=== PATIENT | female | born 1990 | race Caucasian/White ===

== ENCOUNTER → 2017-11-21 | Outpatient (CLI) | payer BC | END | disposition home or self-care (01) | LOC: LABWHC1 12:19 | PROVIDERS: ATTEND Obstetrics & Gynecology | DX: Z34.90 Encounter for supervision of normal pregnancy, unspecified, unspecified trimester (principal); Z3A.00 Weeks of gestation of pregnancy not specified | CPT/HCPCS: 36415; 84702; 86850; 86900; 86901 ==

== ENCOUNTER → 2023-03-14 | Outpatient (CLI) | payer BC ==
--- NOTE | 2023-03-14 14:07 | XR ---
EXAMINATION TYPE: XR foot limited LT DATE OF EXAM: 03/14/2023 COMPARISON: NONE HISTORY: Pain TECHNIQUE: Three views are submitted. FINDINGS: There is a fracture through the base of the fifth metatarsal. There is soft tissue edema. Mild hypert rophic arthropathy first MTP. Small plantar calcaneal spur. IMPRESSION: 1. 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
== END | disposition home or self-care (01) ==
LOC: RADXRMAIN 13:40
PROVIDERS: ATTEND Family Medicine
DX: M24.875 Other specific joint derangements left foot, not elsewhere classified (principal)

== ENCOUNTER 2023-04-11 11:36 | Day surgery (SDC) | payer BC ==
[~2023-04-11 11:36] MED LIST: DEXAMETHASONE SOD PHOSPHATE 4 MG/ML 1 ML VIAL IV ONE; HYDROmorphone 0.5 MG/0.5 ML SYRINGE IVP PRN; LACTATED RINGERS 1,000 ML IV SCH; MIDAZOLAM 2 MG/2 ML VIAL IV PRN; ONDANSETRON 4 MG/2 ML VIAL IVP ONE; SCOPOLAMINE 1 MG/72 HR PATCH TRANSDERM ONE
[2023-04-11 12:11] LABS: Glucose,Whole Blood 91 mg/dL (70-110)
[2023-04-11] MEDS ORDERED: fentaNYL (PF) 50 MCG/ML 2 ML AMP IVP ONE (12:37)
--- NOTE | 2023-04-11 12:58 | P.ANPRN ---
Procedure Note - Anesthesia - Nerve Block Performed Left Popliteal Single Date of Procedure: 04/11/23 Procedure Start Time: 12:35 Procedure Stop Time: 12:50 Location of Patient: PreOp Indication: Acute Post-Operative Pain, Requested by Surgeon Specifically requested for management of pain by DrKerry: Diallo Aden Sedation Type: Sedate with meaningful contact maintained Preparation: Sterile Prep Position: Right Lateral Catheter: None Needle Types: Pajunk Needle Gauge: 21 Ultrasound used to visualize needle placement: Yes Ultrasound used to observe medication spread: Yes Injectate: 0.5% Ropivacaine (see comment for volume) (20 mL/Decadron 4 mg) Blood Aspirated: No Pain Paresthesia on Injection Noted: No Resistance on Injection: Normal Image Stored and Saved: Yes Events: Uneventful and Well Tolerated
--- NOTE | 2023-04-11 12:59 | P.ANPRN ---
Procedure Note - Anesthesia - Nerve Block Performed Left Adductor Canal Single Date of Procedure: 04/11/23 Procedure Start Time: 12:35 Procedure Stop Time: 12:50 Location of Patient: PreOp Indication: Acute Post-Operative Pain, Requested by Surgeon Specifically requested for management of pain by DrKerry: Diallo Aden Sedation Type: Sedate with meaningful contact maintained Preparation: Sterile Prep Position: Supine Catheter: None Needle Types: Pajunk Needle Gauge: 21 Ultrasound used to visualize needle placement: Yes Ultrasound used to observe medication spread: Yes Injectate: 0.5% Ropivacaine (see comment for volume) (15 mL/Decadron 4 mg) Blood Aspirated: No Pain Paresthesia on Injection Noted: No Resistance on Injection: Normal
[2023-04-11] MEDS ORDERED: PROPOFOL 10 MG/ML 20 ML VIAL IV ONE (13:33)
[2023-04-11] MEDS ORDERED: SODIUM CHLORIDE 0.9% (PF) 10 ML VIAL ONE (13:33)
[2023-04-11] MEDS ORDERED: MIDAZOLAM 2 MG/2 ML VIAL ONE (13:33)
[2023-04-11] MEDS ORDERED: LIDOCAINE 1% INJ 10MG/ML (20 ML MDV) ONE (13:33)
[2023-04-11] MEDS ORDERED: DEXAMETHASONE SOD PHOSPHATE 4 MG/ML 1 ML VIAL ONE (13:33)
[2023-04-11] MEDS ORDERED: fentaNYL (PF) 50 MCG/ML 2 ML AMP ONE (13:33)
[2023-04-11] MEDS ORDERED: ROPIVACAINE 5 MG/ML 30 ML VIAL ONE (13:33)
[2023-04-11] MEDS ORDERED: ceFAZolin 1,000 MG in SODIUM CHLORIDE 0.9% 1,000 ML IRRIGATION ONE (13:46)
[2023-04-11 14:28] VITALS: TEMP 97.4
[2023-04-11 16:01] VITALS: BP 99/67; PULSE 69; RESP 18
--- NOTE | 2023-04-14 19:13 | OP ---
OPERATIVE REPORT DATE OF SERVICE : 04/11/2023 PREOPERATIVE DIAGNOSIS: Displaced fifth metatarsal fracture left foot. POSTOPERATIVE DIAGNOSIS: Displaced fifth metatarsal fracture left foot. PROCEDURE PERFORMED: Open reduction with internal fixation, left 5th metatarsal fracture. ANESTHESIA: General with preoperative nerve block. HEMOSTASIS: Left calf tourniquet at 250 mmHg. ESTIMATED BLOOD LOSS: Minimal. MATERIALS: 1 Arthrex 4.5 mm Martell fracture screw. INJECTABLES: None. SPECIMENS: None. COMPLICATIONS: None. DESCRIPTION OF PROCEDURE: Prior to the patient being brought to the operating room, Anesthesia administered, nerve block to the left lower extremity. The patient was brought into the operating room, placed on table in supine position. Time-out was taken to confirm correct patient identifiers, correct laterality of surgery, and correct procedure. Once all staff in the room were in agreement with time-out, the patient was induced and placed under general anesthesia. A well-padded tourniquet was placed in the left calf and a bump underneath the left hip to internally rotate the left leg. The left foot was then prepped and draped in the usual manner. The left foot was exsanguinated and the tourniquet inflated to 250 mmHg. Under direct fluoroscopic visualization, incision plane was made proximal to the fifth metatarsal base. A small incision was made and then bluntly dissected down to the subcutaneous tissue, then it was dissected distally to the base of the fifth metatarsal. A guidewire for the Martell fracture screw system was then placed at the base of the fifth metatarsal, so that the trajectory was aimed for the medullary canal. The wire was advanced partially to the base and then fluoroscopy was used to make sure that the trajectory was correct on AP and lateral views. Once that was correct, the wire was advanced past the fracture into the medullary canal to the secondary curvature. Final fluoroscopic imaging showed correct placement of the wire. The drilling was then performed over the wire and then the tap was inserted and tapped to the depth of the wire. The tap and wire were removed. The wound was irrigated with antibiotic saline and then the Martell fracture screw was inserted into the drill hole and advanced until the threads were distal to the fracture of the head engaging the cortex of the proximal fifth metatarsal base. There was good screw purchase and compression of the fracture. Final fluoroscopic imaging showed proper placement of screw on AP and lateral views. The wound was again irrigated with antibiotic saline and the skin closed with 3-0 nylon. Nonadherent gauze and a dry sterile dressing were applied to the left foot. The tourniquet was released. Capillary refill returned to all digits on the left foot. The patient tolerated the above procedure and anesthesia well, went to Recovery with vital signs stable. MMODL / IJN: [id number] /
== END 2023-04-11 15:55 | disposition home or self-care (01) ==
LOC: OR 11:36
PROVIDERS: ATTEND Podiatrist
DX: S92.352A Displaced fracture of fifth metatarsal bone, left foot, initial encounter for closed fracture (principal); G89.18 Other acute postprocedural pain; J45.909 Unspecified asthma, uncomplicated; K21.9 Gastro-esophageal reflux disease without esophagitis; F17.290 Nicotine dependence, other tobacco product, uncomplicated; F10.90 Alcohol use, unspecified, uncomplicated; Z79.899 Other long term (current) drug therapy; Z88.0 Allergy status to penicillin; Z88.5 Allergy status to narcotic agent; Z82.49 Family history of ischemic heart disease and other diseases of the circulatory system; Z83.3 Family history of diabetes mellitus; X58.XXXA Exposure to other specified factors, initial encounter
CPT/HCPCS: 64447; 81025; 64445; 28485; C1713; J2250; J1100; J0690 ×2; J2405; J2001; J3010; J2795; J2704

== ENCOUNTER 2023-06-13 17:13 | Emergency (ER) | payer BC ==
--- NOTE | 2023-06-13 17:27 | ED ---
Female Urogenital HPI - General Source: patient, family, RN notes reviewed Mode of arrival: ambulatory Limitations: no limitations - History of Present Illness Last Menstrual Period: 04/15/23 <Payton Walter - Last Filed: 06/13/23 17:25> <Antwon Baker - Last Filed: 06/13/23 21:51> - General Stated complaint: 6wks pre possible miscarrige Time Seen by Provider: 06/13/23 17:25 - History of Present Illness Initial comments: Patient is a 32-year-old female presented ER with chief complaint of vaginal bleeding. Patient states she is about 6 weeks and follows up with Dr. Bahena. She reports for the past 3 days she's been having mild spotting and saw her [facility] STE[facility]ER yesterday. Patient states her bleeding increased today and she is now passing clots. (Payton Walter) 32-year-old female presenting to the ED with a chief complaint of vaginal bleeding. Patient states approximately 6 weeks . States for the past few days she's had some spotting and saw her [facility] STE[facility]ER yesterday who performed an ultrasound which reportedly showed IUP. However, states today when she went to the bathroom she had an abrupt increase of vaginal bleeding and is now passing clots. No urinary symptoms. No recent trauma. No chest pain shortness of breath. No other complaints. (Antwon Baker) - Related Data Home Medications Medication Instructions Recorded Confirmed Acetaminophen [Tylenol Extra 1 tab PO DIRECTED PRN 04/08/23 04/08/23 Strength] Betamethasone Dipropionate 1 applic TOPICAL BID 04/08/23 04/08/23 [Betamethasone Dipropionate 0.05%] Ibuprofen 800 mg PO Q8H PRN 04/08/23 04/11/23 Nystatin 100,000Unit/gm Cream 1 applic TOPICAL BID PRN 04/08/23 04/08/23 [Mycostatin Cream] Otc Nexium 1 tab PO DAILY 04/08/23 04/08/23 Phentermine HCl 37.5 mg PO DAILY 04/08/23 04/11/23 Topiramate 50 mg PO DAILY 04/08/23 04/08/23 Unk Multi Vitamin 1 tab PO DAILY 04/08/23 04/08/23 Previous Rx's Medication Instructions Recorded HYDROcodone/APAP 5-325MG [[place] 1 tab PO Q6HR PRN #14 tab 04/11/23 5-325] Allergies Allergy/AdvReac Type Severity Reaction Status Date / Time cefaclor [From [facility]] Allergy Unknown Verified 06/13/23 17:25 Childhood Penicillins Allergy Unknown Verified 06/13/23 17:25 Childhood Review of Systems ROS Other: All systems not noted in ROS Statement are negative. <Payton Walter - Last Filed: 06/13/23 17:25> ROS Other: All systems not noted in ROS Statement are negative. <Antwon Baekr - Last Filed: 06/13/23 21:51> ROS Statement: Those systems with pertinent positive or pertinent negative responses have been documented in the HPI. Past Medical History Past Medical History: Asthma, GERD/Reflux, Skin Disorder Additional Past Medical History / Comment(s): recent weight loss. with rash at times in skin folds. rash at beltline. childhood asthma. fx left foot unknown cause History of Any Multi-Drug Resistant Organisms: None Reported Past Surgical History: No Surgical Hx Reported, Joint Replacement Additional Past Surgical History / Comment(s): bilateral CTR. jaw fx -wired shut Past Anesthesia/Blood Transfusion Reactions: Family History of Problems w/ Anesthesia Additional Past Anesthesia/Blood Transfusion Reaction / Comment(s): mom has BP problems Past Psychological History: Anxiety, Depression Smoking Status: Current every day smoker - Past Family History Father Family Medical History: Diabetes Mellitus, Hypertension Additional Family Medical History / Comment(s): Mother Family Medical History: Myocardial Infarction ([place]) <Payton Walter - Last Filed: 06/13/23 17:25> General Exam Limitations: no limitations <Payton Walter - Last Filed: 06/13/23 17:25> General appearance: alert, in no apparent distress Neck exam: Present: normal inspection Respiratory exam: Present: normal lung sounds bilaterally Cardiovascular Exam: Present: regular rate, normal rhythm GI/Abdominal exam: Present: soft External exam: Present: other (Exam chaperoned by Vilma COOK. Vaginal vault showed large clots which does obscure the cervix how her cervix does appear dilated.) Neurological exam: Present: alert, oriented X3 Skin exam: Present: warm, dry <Antwon Baker - Last Filed: 06/13/23 21:51> - General Exam Comments Initial Comments: Visual Physical Exam Vital signs reviewed General: Anxious and crying, no acute distress. Head: Normocephalic, atraumatic Eyes: PERRLA, EOMI ENT: Airway patent Chest: Nonlabored breathing Skin: No visual rash, normal skin tone Neuro: Alert and oriented 3 Musculoskeletal: No gross abnormalities (Payton Walter) Course Vital Signs 06/13/23 17:20 Temperature 98.1 F Pulse Rate 52 L Respiratory 22 Rate O2 Sat by Pulse 95 Oximetry Medical Decision Making <Payton Walter - Last Filed: 06/13/23 17:25> - Lab Data Result diagrams: 06/13/23 18:47 06/13/23 18:47 <Antwon Baker - Last Filed: 06/13/23 21:51> - Medical Decision Making I performed the quick note portion of the exam. Electronically signed by Payton Walter PA-C (Payton Walter) Was pt. sent in by a medical professional or institution ([facility], AC/DC REWINDER, urgent care, hospital, or snf...) When possible be specific @ -No Did you speak to anyone other than the patient for history (EMS, parent, family, police, friend...)? What history was obtained from this source @ -No Did you review nursing and triage notes (agree or disagree)? Why? @ -I reviewed and agree with nursing and triage notes Were old charts reviewed (outside hosp., previous admission, EMS record, old EKG, old radiological studies, urgent care reports/EKG's, snf records)? Report findings @ -No old charts were reviewed Differential Diagnosis (chest pain, altered mental status, abdominal pain women, abdominal pain men, vaginal bleeding, weakness, fever, dyspnea, syncope, headache, dizziness, GI bleed, back pain, seizure, CVA, palpatations, mental health, musculoskeletal)? @ -Differential Vaginal Bleeding: Spontaneous , threatened , molar , ectopic , bloody show, incompetent cervix, abruptioplacenta, placenta previa, uterine rupture, dysfunctional uterine bleeding, hemorrhage, uterine fibroids, this is not meant to be an all-inclusive list. EKG interpreted by me (3pts min.). @ -None X-rays interpreted by me (1pt min.). @ -None done CT interpreted by me (1pt min.). @ -None done U/S interpreted by me (1pt. min.). @ -None done What testing was considered but not performed or refused? (CT, X-rays, U/S, labs)? Why? @ -None What meds were considered but not given or refused? Why? @ -None Did you discuss the management of the patient with other professionals (professionals i.e. , PA, AC/DC REWINDER, lab, RT, psych nurse, social media marketer, academic vice president, teacher, psychological operations officer, high risk case manager)? Give summary @ -No Was smoking cessation discussed for >3mins.? @ -No Was critical care preformed (if so, how long)? @ -No Were there social determinants of health that impacted care today? How? (Homelessness, low income, unemployed, alcoholism, drug addiction, transportation, low edu. Level, literacy, decrease access to med. care, fdc, rehab)? @ -No Was there de-escalation of care discussed even if they declined (Discuss DNR or withdrawal of care, Hospice)? DNR status @ -No What co-morbidities impacted this encounter? (DM, HTN, Smoking, COPD, CAD, Cancer, CVA, ARF, Chemo, Hep., AIDS, mental health diagnosis, sleep apnea, morbid obesity)? @ -None Was patient admitted / discharged? Hospital course, mention meds given and route, prescriptions, significant lab abnormalities, going to OR and other pertinent info. @ -Discharge 32-year-old female presenting to the ED with 3 days of spotting with abrupt increase in bleeding with passing of clots and some abdominal cramping today. Laboratory studies reviewed. Labs show white count of 16.3. Chemistry panel unremarkable. UA shows no significant evidence for infection. Transvaginal ultrasound showed a gestational sac estimated at 6 weeks 2 days however no intrauterine pole or yolk sac. Sac is low-lying. No cardiac activity as well. At this time vital signs stable, afebrile. Patient discharged home in stable condition to follow up with her OBGYN. Discussed strict return precuations with patient and family who verbalized agreement. Undiagnosed new problem with uncertain prognosis? @ -No Drug Therapy requiring intensive monitoring for toxicity (Heparin, Nitro, Insulin, Cardizem)? @ -No Were any procedures done? @ -No Diagnosis/symptom? @ -Spontaneous Acute, or Chronic, or Acute on Chronic? @ -Acute Uncomplicated (without systemic symptoms) or Complicated (systemic symptoms)? @ -Complicated Side effects of treatment? @ -No Exacerbation, Progression, or Severe Exacerbation? @ -No Poses a threat to life or bodily function? How? (Chest pain, [place], [place], pneumonia, PE, COPD, DKA, ARF, appy, cholecystitis, CVA, Diverticulitis, Homicidal, Suicidal, threat to staff... and all critical care pts) @ -No (Antwon Baker) - Lab Data Lab Results 06/13/23 06/13/23 06/13/23 Range/Units 18:47 18:47 18:47 WBC 16.3 H (3.8-10.6) k/uL RBC 4.30 (3.80-5.40) m/uL Hgb 12.8 (11.4-16.0) gm/dL Hct 38.4 (34.0-46.0) % MCV 89.3 (80.0-100.0) fL MCH 29.7 (25.0-35.0) pg MCHC 33.3 (31.0-37.0) g/dL RDW 12.9 (11.5-15.5) % Plt Count 388 (150-450) k/uL MPV 7.2 Sodium 138 (137-145) mmol/L Potassium 4.3 (3.5-5.1) mmol/L Chloride 102 (98-107) mmol/L Carbon Dioxide 24 (22-30) mmol/L Anion Gap 12 mmol/L BUN 14 (7-17) mg/dL Creatinine 0.86 (0.52-1.04) mg/dL Est GFR (CKD-EPI)AfAm >90 (>60 ml/min/1.73 sqM) Est GFR (CKD-EPI)NonAf >90 (>60 ml/min/1.73 sqM) Glucose 92 (74-99) mg/dL Calcium 9.6 (8.4-10.2) mg/dL Total Bilirubin 0.5 (0.2-1.3) mg/dL AST 33 (14-36) U/L ALT 40 H (4-34) U/L Alkaline Phosphatase 75 (38-126) U/L Total Protein 7.5 (6.3-8.2) g/dL Albumin 4.5 (3.5-5.0) g/dL HCG, Quant 3340.6 mIU/mL Urine Color Urine Appearance (Clear) Urine pH (5.0-8.0) Ur Specific [place] (1.001-1.035) Urine Protein (Negative) Urine Glucose (UA) (Negative) Urine Ketones (Negative) Urine Blood (Negative) Urine Nitrite (Negative) Urine Bilirubin (Negative) Urine Urobilinogen (<2.0) mg/dL Ur Leukocyte Esterase (Negative) Urine RBC (0-5) /hpf Urine WBC (0-5) /hpf Ur Squamous Epith Cells (0-4) /hpf Urine Mucus (None) /hpf Blood Type O Positive Blood Type Recheck O Pos Bld Type Recheck Status [facility] ONLY 06/13/23 Range/Units 20:12 WBC (3.8-10.6) k/uL RBC (3.80-5.40) m/uL Hgb (11.4-16.0) gm/dL Hct (34.0-46.0) % MCV (80.0-100.0) fL MCH (25.0-35.0) pg MCHC (31.0-37.0) g/dL RDW (11.5-15.5) % Plt Count (150-450) k/uL MPV Sodium (137-145) mmol/L Potassium (3.5-5.1) mmol/L Chloride (98-107) mmol/L Carbon Dioxide (22-30) mmol/L Anion Gap mmol/L BUN (7-17) mg/dL Creatinine (0.52-1.04) mg/dL Est GFR (CKD-EPI)AfAm (>60 ml/min/1.73 sqM) Est GFR (CKD-EPI)NonAf (>60 ml/min/1.73 sqM) Glucose (74-99) mg/dL Calcium (8.4-10.2) mg/dL Total Bilirubin (0.2-1.3) mg/dL AST (14-36) U/L ALT (4-34) U/L Alkaline Phosphatase (38-126) U/L Total Protein (6.3-8.2) g/dL Albumin (3.5-5.0) g/dL HCG, Quant mIU/mL Urine Color Yellow Urine Appearance Clear (Clear) Urine pH 7.0 (5.0-8.0) Ur Specific [place] 1.019 (1.001-1.035) Urine Protein Trace H (Negative) Urine Glucose (UA) Negative (Negative) Urine Ketones Negative (Negative) Urine Blood Large H (Negative) Urine Nitrite Negative (Negative) Urine Bilirubin Negative (Negative) Urine Urobilinogen <2.0 (<2.0) mg/dL Ur Leukocyte Esterase Negative (Negative) Urine RBC >182 H (0-5) /hpf Urine WBC 14 H (0-5) /hpf Ur Squamous Epith Cells <1 (0-4) /hpf Urine Mucus Rare H (None) /hpf Blood Type Blood Type Recheck Bld Type Recheck Status Disposition <Payton Walter - Last Filed: 06/13/23 17:25> Is patient prescribed a controlled substance at d/c from ED?: No Time of Disposition: 21:51 <Antwon Baker - Last Filed: 06/13/23 21:51> Clinical Impression: Spontaneous Disposition: HOME SELF-CARE Condition: Good Instructions (If sedation given, give patient instructions): Miscarriage (ED) Additional Instructions: Please return to the Emergency Department if symptoms worsen or any other concerns. Please follow up with your [facility] STE[facility]ER. Referrals: Mathew Yun DO [Primary Care Provider] - 1-2 days
[2023-06-13 17:45] VITALS: TEMP 98.1
[2023-06-13 18:58] LABS: HCT 38.4 % (34.0-46.0); HGB 12.8 gm/dL (11.4-16.0); MCH 29.7 pg (25.0-35.0); MCHC 33.3 g/dL (31.0-37.0); MCV 89.3 fL (80.0-100.0); Mean Platelet Volume 7.2; Platelet Count 388 k/uL (150-450); RDW 12.9 % (11.5-15.5); WBC 16.3 k/uL (3.8-10.6)
[2023-06-13 19:08] LABS: ALT 40 U/L (4-34); AST 33 U/L (14-36); African American GFR (CKD) >90 (>60 ml/min/1.73 sqM); Albumin 4.5 g/dL (3.5-5.0); Alkaline Phosphatase 75 U/L (38-126); Anion Gap 12 mmol/L; Blood Urea Nitrogen 14 mg/dL (7-17); Calcium 9.6 mg/dL (8.4-10.2); Carbon Dioxide 24 mmol/L (22-30); Chloride 102 mmol/L (98-107); Glucose 92 mg/dL (74-99); Non-African American GFR(CKD) >90 (>60 ml/min/1.73 sqM); Potassium 4.3 mmol/L (3.5-5.1); Sodium 138 mmol/L (137-145); Total Bilirubin 0.5 mg/dL (0.2-1.3); Total Protein 7.5 g/dL (6.3-8.2)
[2023-06-13 19:25] LABS: HCG,Quantitative Serum 3340.6 mIU/mL
[2023-06-13 20:57] LABS: Appearance,Urine Clear (Clear); Bilirubin,Urine Negative (Negative); Blood,Urine Large (Negative); Color,Urine Yellow; Glucose,Urine (UA) Negative (Negative); Ketones,Urine Negative (Negative); Leukocyte Esterase,Urine Negative (Negative); Mucus,Urine Rare /hpf; Nitrite,Urine Negative (Negative); Protein,Urine Trace (Negative); RBC,Urine >182 /hpf (0-5); Specific Gravity,Urine 1.019 (1.001-1.035); Squamous Epithelial Cell,Urine <1 /hpf (0-4); Urobilinogen,Urine <2.0 mg/dL (<2.0); WBC,Urine 14 /hpf (0-5)
--- NOTE | 2023-06-13 21:05 | US ---
EXAMINATION TYPE: Transabdominal DATE OF EXAM: 06/13/2023 8:52 PM COMPARISON: NONE CLINICAL INDICATION: Female, 32 years old with history of bleeding; Bleeding x 1 day EXAM PERFORMED: Transvaginal (TV) and Transabdominal (TA) EXAM MEASUREMENTS: GESTATIONAL AGE / DATING Physician Established: (8 weeks/3 days) EDC: 01/20/2024 Dates by LMP: (8 weeks/3 days) EDC: 01/20/2024 Dates by First Scan: This is 1st scan here Dates by Current Scan for: No pole seen at this time MATERNAL ANATOMY Uterus: 10.2 x 3.4 x 4.0cm, thickened endometrium Right Ovary: 3.3 x 2.8 x 2.8cm Left Ovary: 3.0 x 2.9 x 2.7cm Post CDS / Adnexa: wnl Presence of free fluid: no Presence of corpus luteal cyst: right ovary - 1.8 x 1.8 x 1.5cm Presence of subchorionic bleed: no GESTATION / SURVEY MSD: 1.5cm (6 weeks/2 days) No pole or yolk sac seen at this time Gestational sac appears to be in lower uterine segment and cervix Date of LMP: 04/15/2023 Beta HcG (if available): Not available at time of exam IMPRESSION: 1. Single intrauterine gestational sac estimated at 6 weeks 2 days based on the mean sac diameter. Th e sac is low-lying within the uterine segment cervical canal. This may be an impending spontaneous ab ortion. 2. An intrauterine pole or yolk sac is not identified at this time. No cardiac activity is pres ent. Findings can be related to blighted oval.
[2023-06-13 22:10] VITALS: BP 112/71; PULSE 80; RESP 16
== END 2023-06-13 22:01 | disposition home or self-care (01) ==
LOC: EC 17:13
DX: O03.9 Complete or unspecified spontaneous abortion without complication (principal); J45.909 Unspecified asthma, uncomplicated; O99.52 Diseases of the respiratory system complicating childbirth; O99.334 Smoking (tobacco) complicating childbirth; F17.200 Nicotine dependence, unspecified, uncomplicated; Z88.0 Allergy status to penicillin; Z88.8 Allergy status to other drugs, medicaments and biological substances; Z3A.00 Weeks of gestation of pregnancy not specified
CPT/HCPCS: 36415; 76801; 76817; 80053; 81001; 84702; 85027; 86900; 86901; 99284

== ENCOUNTER 2024-05-03 16:20 | Outpatient (CLI) | payer BC | END 2024-05-03 17:44 | disposition home or self-care (01) | LOC: FBPOP 16:20 | PROVIDERS: ATTEND Obstetrics & Gynecology | DX: O99.331 Smoking (tobacco) complicating pregnancy, first trimester (principal); O24.429 Gestational diabetes mellitus in childbirth, unspecified control; Z3A.01 Less than 8 weeks gestation of pregnancy; F17.210 Nicotine dependence, cigarettes, uncomplicated; Z88.1 Allergy status to other antibiotic agents; Z88.0 Allergy status to penicillin | CPT/HCPCS: 59025; 59200; 99213 ==

== ENCOUNTER 2024-05-04 06:00 | Inpatient (IN) | payer BC ==
[2024-05-04] MEDS: LACTATED RINGERS 1,000 ML IV SCH (06:20)
[2024-05-04 06:43] LABS: Glucose,Whole Blood 109 mg/dL (70-110)
[2024-05-04] MEDS ORDERED: OXYTOCIN 10 UNIT/ML 1 ML VIAL IM PRN (06:44)
[2024-05-04] MEDS ORDERED: LIDOCAINE 0.5% (PF) 5 MG/ML (50 ML SDV) SQ PRN (06:44)
[2024-05-04] MEDS ORDERED: miSOPROStoL 200 MCG TAB RECTAL PRN (06:44)
[2024-05-04] MEDS ORDERED: METHYLERGONOVINE 0.2 MG/ML 1 ML AMP IM PRN (06:44)
[2024-05-04] MEDS ORDERED: miSOPROStoL 200 MCG TAB PO PRN (06:44)
[2024-05-04] MEDS ORDERED: TERBUTALINE 1 MG/ML VIAL SQ PRN (06:44)
[2024-05-04] MEDS ORDERED: CARBOPROST TROMETHAMINE 250 MCG/ML 1 ML AMP IM PRN (06:44)
[2024-05-04] MEDS ORDERED: TRANEXAMIC 1,000 MG/100ML-NACL 1,000 MG in EMPTY BAG 1 BAG IV PRN (06:44)
[2024-05-04] MEDS: OXYTOCIN 30 UNITS/500 ML NS 30 UNIT in SALINE 1 500ML.BAG IV SCH (06:59)
[2024-05-04 07:13] LABS: Basophils # (A) 0.1 k/uL (0-0.2); Basophils % (A) 0 %; Eosinophils # (A) 0.6 k/uL (0-0.7); Eosinophils % (A) 3 %; HCT 36.9 % (34.0-46.0); Lymphocytes # (A) 2.8 k/uL (1.0-4.8); Lymphocytes % (A) 16 %; MCH 28.5 pg (25.0-35.0); MCHC 32.7 g/dL (31.0-37.0); MCV 87.2 fL (80.0-100.0); Mean Platelet Volume 7.9; Monocytes # (A) 0.8 k/uL (0-1.0); Monocytes % (A) 5 %; Neutrophils # (A) 12.3 k/uL (1.3-7.7); Neutrophils % (A) 73 %; Platelet Count 346 k/uL (150-450); RBC 4.23 m/uL (3.80-5.40); RDW 14.4 % (11.5-15.5); WBC 16.9 k/uL (3.8-10.6)
--- NOTE | 2024-05-04 07:50 | P.HPOB ---
History of Present Illness H&P Date: 05/04/24 Chief Complaint: induction of labor 33 year old presents at 39 weeks for induction of labor. She has GDM A2. Sugar this morning was 109. She is not beryl and had dilapan last night since she was closed. Today it is 1-2/50/-3. heart tones category 1. Review of Systems All systems: negative Constitutional: Denies chills, Denies fever Eyes: denies blurred vision, denies pain Ears, nose, mouth and throat: Denies headache, Denies sore throat Cardiovascular: Denies chest pain, Denies shortness of breath Respiratory: Denies cough Gastrointestinal: Denies abdominal pain, Denies diarrhea, Denies nausea, Denies vomiting Genitourinary: Denies dysuria, Denies hematuria Musculoskeletal: Denies myalgias Integumentary: Denies pruritus, Denies rash Neurological: Denies numbness, Denies weakness Psychiatric: Denies anxiety, Denies depression Endocrine: Denies fatigue, Denies weight change Past Medical History Past Medical History: Asthma, GERD/Reflux, Skin Disorder Additional Past Medical History / Comment(s): recent weight loss. with rash at times in skin folds. rash at beltline. childhood asthma. fx left foot unknown cause History of Any Multi-Drug Resistant Organisms: None Reported Past Surgical History: No Surgical Hx Reported, Joint Replacement Additional Past Surgical History / Comment(s): bilateral CTR. jaw fx -wired shut Past Anesthesia/Blood Transfusion Reactions: Family History of Problems w/ Anesthesia Additional Past Anesthesia/Blood Transfusion Reaction / Comment(s): mom has BP problems Past Psychological History: Anxiety, Depression Smoking Status: Current every day smoker Past Alcohol Use History: Occasional Additional Past Alcohol Use History / Comment(s): 1/2 ppd smoked. since teens Past Drug Use History: None Reported - Past Family History Father Family Medical History: Diabetes Mellitus, Hypertension Additional Family Medical History / Comment(s): Mother Family Medical History: Myocardial Infarction ([place]) Medications and Allergies Home Medications Medication Instructions Recorded Confirmed Type Acetaminophen [Tylenol Extra 1 tab PO DIRECTED PRN 04/08/23 04/08/23 History Strength] Otc Nexium 1 tab PO DAILY 04/08/23 04/08/23 History Phentermine HCl 37.5 mg PO DAILY 04/08/23 04/11/23 History Aspirin [[place] Aspirin EC] 81 mg PO 05/04/24 History Insulin Glargine,Hum.rec.anlog 29 units SQ DAILY 05/04/24 05/04/24 History [Lantus Solostar Pen] Vit No.179/Iron/Folic 1 each PO 05/04/24 History [ Tablet] Allergies Allergy/AdvReac Type Severity Reaction Status Date / Time cefaclor [From [facility]] Allergy Unknown Verified 06/13/23 17:25 Childhood Penicillins Allergy Unknown Verified 06/13/23 17:25 Childhood Exam Osteopathic Statement: *. No significant issues noted on an osteopathic structural exam other than those noted in the History and Physical/Consult. Vital Signs Temp Pulse Resp BP Pulse Ox 05/04/24 06:30 96.9 F L 107 H 16 135/95 100 Intake and Output 05/03/24 05/04/24 05/04/24 22:59 06:59 14:59 Other: Weight 136.985 kg Heart: Regular rate and rhythm Lungs: Clear to auscultation bilaterally Abdomen: Soft, nontender Extremities: Negative Homans sign Results Result Diagrams: 05/04/24 06:45 Abnormal Lab Results - Last 24 Hours (Table) 05/04/24 Range/Units 06:45 WBC 16.9 H (3.8-10.6) k/uL Neutrophils # 12.3 H (1.3-7.7) k/uL Assessment and Plan (1) Gestational diabetes mellitus, class A2 Current Visit: Yes Status: Acute Code(s): O24.419 - GESTATIONAL DIABETES MELLITUS IN , UNSP CONTROL SNOMED Code(s): 02503873 (2) 39 weeks gestation of Current Visit: Yes Status: Acute Code(s): Z3A.39 - 39 WEEKS GESTATION OF SNOMED Code(s): 27476780 Plan: 1. induction of labor with dilapan and then amniotomy and pitocin 2. anticipate normal vaginal delivery
[2024-05-04 08:08] LABS: Glucose,Whole Blood 98 mg/dL (70-110)
[2024-05-04 10:10] LABS: Glucose,Whole Blood 94 mg/dL (70-110)
[2024-05-04 12:07] LABS: Glucose,Whole Blood 95 mg/dL (70-110)
[2024-05-04 13:52] LABS: Glucose,Whole Blood 79 mg/dL (70-110)
[2024-05-04 16:07] LABS: Glucose,Whole Blood 77 mg/dL (70-110)
[2024-05-04 18:02] LABS: Glucose,Whole Blood 81 mg/dL (70-110)
[2024-05-04] MEDS: BUTORPHANOL 1 MG/ML 1 ML VIAL IV PRN (19:11)
[2024-05-04 20:04] LABS: Glucose,Whole Blood 80 mg/dL (70-110)
[2024-05-04 23:00] LABS: Glucose,Whole Blood 85 mg/dL (70-110)
[2024-05-05 01:59] LABS: Glucose,Whole Blood 80 mg/dL (70-110)
[2024-05-05 04:18] LABS: Glucose,Whole Blood 78 mg/dL (70-110)
[2024-05-05 06:15] LABS: Glucose,Whole Blood 99 mg/dL (70-110)
[2024-05-05] MEDS: CITRIC ACID-SODIUM CITRATE 15 ML CUP PO ONE ×2 (07:49→09:18)
[2024-05-05] MEDS ORDERED: MIDAZOLAM 2 MG/2 ML VIAL ONE (08:04)
[2024-05-05] MEDS ORDERED: OXYTOCIN 30 UNITS/500 ML NS BAG IV ONE (08:04)
[2024-05-05] MEDS ORDERED: ONDANSETRON 4 MG/2 ML VIAL ONE (08:04)
[2024-05-05] MEDS ORDERED: KETOROLAC 15 MG/ML 1 ML VIAL ONE (08:04)
[2024-05-05] MEDS ORDERED: MORPHINE SULFATE (PF) 0.3 MG/0.3 ML SYR ONE (08:04)
[2024-05-05] MEDS ORDERED: diphenhydrAMINE 50 MG CAP PO PRN (08:51)
[2024-05-05] MEDS ORDERED: diphenhydrAMINE 50 MG/ML 1 ML VIAL IVP PRN (08:51)
[2024-05-05] MEDS ORDERED: LANOLIN CREAM 1 GM TUBE TOPICAL PRN (08:51)
[2024-05-05] MEDS ORDERED: ZOLPIDEM 5 MG TAB PO PRN (08:51)
[2024-05-05] MEDS ORDERED: NALOXONE 0.4 MG/ML 1 ML VIAL IV PRN (08:51)
[2024-05-05] MEDS ORDERED: METOCLOPRAMIDE 5 MG/ML 2 ML VIAL IVP PRN (08:51)
[2024-05-05] MEDS ORDERED: SIMETHICONE 80 MG CHEWABLE PO PRN (08:51)
[2024-05-05] MEDS ORDERED: diphenhydrAMINE 25 MG CAP PO PRN (08:51)
[2024-05-05] MEDS ORDERED: OXYTOCIN 30 UNITS/500 ML NS 30 UNIT in SALINE 1 500ML.BAG IV SCH (09:00)
[2024-05-05] MEDS: ceFAZolin 3 GM in SODIUM CHLORIDE 0.9% 100 ML IVPB ONE (09:17)
[2024-05-05] MEDS: LACTATED RINGERS 1,000 ML IV ONE (09:19)
[2024-05-05] MEDS: LACTATED RINGERS 1,000 ML IV SCH (11:39)
[2024-05-05] MEDS: ACETAMINOPHEN TAB 500 MG TAB PO SCH (13:29)
[2024-05-05] MEDS: ONDANSETRON 4 MG/2 ML VIAL IVP PRN (15:06)
[2024-05-05] MEDS: KETOROLAC 15 MG/ML 1 ML VIAL IVP SCH (16:15)
[2024-05-05] MEDS: diphenhydrAMINE 50 MG/ML 1 ML VIAL IVP PRN (17:10)
[2024-05-05] MEDS: SENNOSIDES-DOCUSATE SODIUM 1 EACH TAB PO SCH (20:05)
[2024-05-05] MEDS: MEASLES-MUMPS-RUBELLA VACC/PF 12,500 UNIT/0.5 ML VIAL SQ ONE (23:55)
[2024-05-06 00:07] VITALS: RESP 16
[2024-05-06 05:25] LABS: Basophils # (A) 0.1 k/uL (0-0.2); Basophils % (A) 0 %; Eosinophils # (A) 0.6 k/uL (0-0.7); Eosinophils % (A) 3 %; Lymphocytes # (A) 2.9 k/uL (1.0-4.8); Lymphocytes % (A) 18 %; MCH 28.5 pg (25.0-35.0); MCHC 32.5 g/dL (31.0-37.0); MCV 87.7 fL (80.0-100.0); Mean Platelet Volume 7.9; Monocytes % (A) 6 %; Neutrophils # (A) 11.6 k/uL (1.3-7.7); Neutrophils % (A) 71 %; Platelet Count 345 k/uL (150-450); RBC 3.87 m/uL (3.80-5.40); RDW 14.5 % (11.5-15.5); WBC 16.5 k/uL (3.8-10.6)
--- NOTE | 2024-05-06 08:37 | P.PN ---
Progress Note - Text Adequate analgesia. No complication from intrathecal Duramorph.
[2024-05-06] MEDS: IBUPROFEN 800 MG TAB PO SCH (09:02)
--- NOTE | 2024-05-06 09:09 | P.PNOBGPC ---
Subjective - Subjective Principal diagnosis: StatusPost primary low transverse postop day 1 Interval history: Patient seen and examined. Denies nausea, vomiting, chest pain, shortness of breath or calf pain. She is ambulating around the room without difficulty. Tolerating regular diet and passing flatus Patient reports: Reports appetite normal, Reports voiding normally, Reports pain well controlled, Reports ambulating normally : doing well Objective - Vital Signs Latest vital signs: Vital Signs Temp Pulse Resp BP Pulse Ox 05/06/24 04:10 88 16 120/79 96 05/06/24 00:00 98 F 80 16 115/70 98 05/05/24 20:00 77 18 112/75 96 05/05/24 16:00 98.8 F 81 14 119/79 97 05/05/24 13:27 98.6 F 76 16 140/90 95 05/05/24 10:55 97.2 F L 73 16 132/69 97 05/05/24 10:40 88 16 113/66 05/05/24 10:25 72 16 113/58 96 05/05/24 10:10 83 16 135/63 05/05/24 09:54 80 16 140/62 97 05/05/24 09:40 75 16 163/90 95 05/05/24 09:25 79 16 130/71 97 05/05/24 09:10 93 16 127/68 95 Intake and Output 05/05/24 05/06/24 05/06/24 22:59 06:59 14:59 Intake Total 600 Output Total 400 250 Balance -400 350 Intake: Oral 600 Output: Urine 400 250 Other: # Voids 1 - Exam Lungs: bilateral: normal Chest: Normal S1, Normal S2 Extremities: Present: normal Abdomen: Present: normal appearance, soft. Absent: distention, tenderness Incision: Present: normal, dry, intact Uterus: Present: normal, firm - Labs Labs: Abnormal Lab Results - Last 24 Hours (Table) 05/06/24 Range/Units 05:13 WBC 16.5 H (3.8-10.6) k/uL Hgb 11.0 L (11.4-16.0) gm/dL Neutrophils # 11.6 H (1.3-7.7) k/uL Assessment and Plan (1) Gestational diabetes mellitus, class A2 Current Visit: Yes Status: Resolved Code(s): O24.419 - GESTATIONAL DIABETES MELLITUS IN , UNSP CONTROL SNOMED Code(s): 97389001 (2) 39 weeks gestation of Current Visit: Yes Status: Resolved Code(s): Z3A.39 - 39 WEEKS GESTATION OF SNOMED Code(s): 11813276 (3) Status post primary low transverse section Current Visit: Yes Status: Acute Code(s): Z98.891 - HISTORY OF UTERINE SCAR FROM PREVIOUS SURGERY SNOMED Code(s): 735012381 Plan: 1. inc ambulation 2. po pain meds
[2024-05-07 08:34] VITALS: BP 125/75; PULSE 85; TEMP 98.2
--- NOTE | 2024-05-07 08:34 | P.OP ---
Date of Procedure: 05/05/24 Preoperative Diagnosis: 1. at 39 weeks 1 day 2. failed induction 3. arrest of dilation Postoperative Diagnosis: 1. at 39 weeks 1 day 2. failed induction 3. arrest of dilation Procedure(s) Performed: Primary low transverse Anesthesia: spinal Surgeon: Idania Bahena Hair Worker #1: Raudel Houser Estimated Blood Loss (ml): 750 IV fluids (ml): 1,000 Urine output (ml): 300 Pathology: none sent Condition: stable Disposition: floor Indications for Procedure: Review 4-year-old presented at 39 weeks for induction of labor. She had Dilapan for cervical ripening and was 2-3 cm in the morning. Amniotomy had been performed on 05/04/2024. She was on Pitocin for 24 hours but did not dilate past 2-3 cm despite adequate contractions. The patient center huddle was held at bedside. Informed consent was obtained and section was called. Operative Findings: Viable male, Apgars 9, 9, weight 8 lbs. 4 oz. Description of Procedure: Patient was taken to the operating room where spinal anesthesia was found be adequate. She was prepped and draped in normal sterile fashion in dorsal supine position with a leftward tilt. Pfannenstiel skin incision was made the scalpel and carried through to the underlying layer of fascia with the scalpel. Fascia was incised in midline and carried bilaterally with the Braun scissors. The superior aspect of the fascial incision was grasped with Lizbeth clamps elevated and the underlying rectus muscles dissected off with the Braun's. Attention was then turned to inferior aspect of same incision which in a similar fashion was grasped tented up and the underlying rectus muscles dissected off with the Braun's. The rectus muscles were the midline and the peritoneum was identified tented up and entered sharply with the scalpel. The incision was extended superiorly and inferiorly with good visualization of the bladder. The bladder blade was inserted and the vesicouterine peritoneum was incised the Metzenbaums then carried bilaterally and bladder flap created digitally. A low transverse incision was then made on the uterus with the scalpel. This was carried bilaterally and digital manner. 's head delivered atraumatically In the OT position, nose and mouth bulb suctioned, cord clamped and cut, infant handed off to waiting nurses. Apgars 9,9, weight 8 lbs. 4 oz. Placenta delivered manually, intact with three-vessel cord. The uterus is exteriorized and cleared of all clots and debris. The uterine incision was closed with 0 Vicryl in a running locked fashion. Second layer of the same sutures used in imbricating fashion to obtain excellent hemostasis. Both ovaries and tubes appeared normal. The uterus was placed back into the abdomen. The fascia was reapproximated using 0 Vicryl in a running fashion. The subcutaneous tissues closed with 3-0 Vicryl running fashion. The skin was closed torres. Patient tolerated the procedure well, sponge and instrument counts were correct times 2 and she was taken to the recovery room in stable condition.
--- NOTE | 2024-05-07 08:35 | P.DS ---
Providers Date of admission: 05/04/24 06:09 Expected date of discharge: 05/07/24 Attending physician: Idania Bahena Primary care physician: Stated None - Discharge Diagnosis(es) (1) Gestational diabetes mellitus, class A2 Current Visit: Yes Status: Resolved (2) 39 weeks gestation of Current Visit: Yes Status: Resolved (3) Status post primary low transverse section Current Visit: Yes Status: Acute Hospital Course: She presented for induction of labor. She underwent a primary low transverse C- section for failed induction. Post operative course was uneventful. She denies nausea, vomiting, chest pain, shortness of breath or calf pain. She is ambulating voiding without difficulty, passing flatus and did have a bowel movement. Patient will be discharged home postoperative day #2 in stable condition to follow-up with me in 2 weeks. Plan - Discharge Summary New Discharge Prescriptions: No Action Phentermine HCl 37.5 mg PO DAILY Otc Nexium 1 tab PO DAILY Acetaminophen [Tylenol Extra Strength] 1 tab PO DIRECTED PRN PRN Reason: Pain Insulin Glargine,Hum.rec.anlog [Lantus Solostar Pen] 29 units SQ DAILY Aspirin [Rolette Aspirin EC] 81 mg PO Vit No.179/Iron/Folic [ Tablet] 1 each PO Discharge Medication List Acetaminophen [Tylenol Extra Strength] 1 tab PO DIRECTED PRN 04/08/23 [History] Otc Nexium 1 tab PO DAILY 04/08/23 [History] Phentermine HCl 37.5 mg PO DAILY 04/08/23 [History] Aspirin [Rolette Aspirin EC] 81 mg PO 05/04/24 [History] Insulin Glargine,Hum.rec.anlog [Lantus Solostar Pen] 29 units SQ DAILY 05/04/24 [History] Vit No.179/Iron/Folic [ Tablet] 1 each PO 05/04/24 [History] Follow up Appointment(s)/Referral(s): Idania Bahena DO [Doctor of Osteopathic Medicine] - 06/15/24 10:15 am (Post C/S Appointment 05-18-2024 at 2:45pm) Discharge Disposition: HOME SELF-CARE
== END 2024-05-07 11:00 | disposition home or self-care (01) | DRG 788 ==
LOC: 4FBP 06:09
PROVIDERS: ADMIT Obstetrics & Gynecology; ATTEND Obstetrics & Gynecology
PROC: 3E0P7VZ Introduction of Hormone into Female Reproductive, Via Natural or Artificial Opening (ICD-10-PCS; 2024-05-04)
PROC: 3E033VJ Introduction of Other Hormone into Peripheral Vein, Percutaneous Approach (ICD-10-PCS; 2024-05-04)
PROC: 10D00Z1 Extraction of Products of Conception, Low, Open Approach (ICD-10-PCS; principal; 2024-05-05 08:20)
DX: O24.429 Gestational diabetes mellitus in childbirth, unspecified control (principal); O61.9 Failed induction of labor, unspecified; F17.210 Nicotine dependence, cigarettes, uncomplicated; Z37.0 Single live birth; Z3A.39 39 weeks gestation of pregnancy; O99.334 Smoking (tobacco) complicating childbirth; O62.0 Primary inadequate contractions; Z79.4 Long term (current) use of insulin; Z79.82 Long term (current) use of aspirin; Z79.899 Other long term (current) drug therapy
CPT/HCPCS: 85025; 86850; 86900; 86901; 90707